=== PATIENT | male | born 1965 | race Caucasian/White ===

== ENCOUNTER → 2016-11-28 | Outpatient (REF) | payer OTHER ==
[~2016-11-28] MED LIST: GEMFIBROZIL; LISI10TA4; MAGN250T; SIMV10TA2; THERGRAN; ZOLO100T; fish oil; hctz
== END ==
LOC: M LAB REF 16:41
PROVIDERS: ATTEND Internal Medicine
DX: E78.5 Hyperlipidemia, unspecified (principal)

== ENCOUNTER 2017-03-31 20:04 | Emergency (ER) | payer OTHER ==
[~2017-03-31] VITALS: Ht 175.3 cm; Wt 99.0 kg
[2017-03-31] MEDS ORDERED: [UNRECOGNIZED DRUG - OTHER] PO (20:12)
[2017-03-31] MEDS ORDERED: PROP10TA56 PO (20:12)
[2017-03-31] MEDS ORDERED: TRAZ50TA11 PO (20:12)
[2017-03-31] MEDS ORDERED: CRES10TA32 PO (20:12)
[2017-03-31] MEDS ORDERED: FLAXPOW PO (20:12)
[2017-03-31] MEDS ORDERED: HYDR-3713 PO (21:23)
[2017-03-31] MEDS ORDERED: HYDROmorphone HCL 1 MG/ML SYRINGE (J1170) IM ONE (21:30)
[2017-03-31 21:58] VITALS: BP 152/92
== END 2017-03-31 22:02 | disposition home or self-care (01) ==
LOC: M ED 21:33
DX: M54.5 Low back pain (principal); G89.29 Other chronic pain
CPT/HCPCS: 96372; 99282; J1170

== ENCOUNTER → 2017-04-03 | Outpatient (REF) | payer OTHER ==
[~2017-04-03] MED LIST changes: +CRES10TA32 PO; +FLAXPOW PO; +HYDR-3713 PO; +PROP10TA56 PO; +TRAZ50TA11 PO; +[UNRECOGNIZED DRUG - OTHER] PO
== END ==
LOC: M LAB REF 13:02
PROVIDERS: ATTEND Internal Medicine
DX: E29.1 Testicular hypofunction (principal)

== ENCOUNTER 2017-05-14 18:56 | Emergency (ER) | payer OTHER ==
[~2017-05-14] VITALS: Ht 175.3 cm; Wt 99.5 kg
[2017-05-14 19:09] VITALS: BP 163/99
== END 2017-05-14 20:17 | disposition home or self-care (01) ==
LOC: M ED 18:56
DX: R07.0 Pain in throat (principal)

== ENCOUNTER → 2017-09-16 | Outpatient (REF) | payer OTHER | LOC: M LAB REF 13:28 | PROVIDERS: ATTEND Internal Medicine | DX: E29.1 Testicular hypofunction (principal) ==

== ENCOUNTER → 2017-10-10 | Outpatient (REF) | payer OTHER ==
[2017-10-10 12:16] LABS: TESTOSTERONE 123 NG/DL (241-827)
== END ==
LOC: M LAB REF 11:43
DX: E29.1 Testicular hypofunction (principal)

== ENCOUNTER → 2017-10-16 | Outpatient (REF) | payer OTHER ==
[2017-10-16 19:33] LABS: TOTAL PROTEIN,RANDOM URINE 208.6 MG/DL (0.0-12.0); URINE TOTAL PROTEIN 208.6 MG/DL (0-12)
[2017-10-16 19:41] LABS: COMPLEMENT C4 27.7 MG/DL (10-40); TOTAL PROTEIN 7.7 GM/DL (6.4-8.2)
[2017-10-16 19:41] LABS: COMPLEMENT C3 156 MG/DL (90-180)
[2017-10-17 17:20] LABS: HEPATITIS B SURFACE ANTIGEN NEGATIVE (NEGATIVE)
[2017-10-20 12:18] LABS: ALBUMIN % 53.6 % (55.8-66.1); ALPHA-1-GLOBULIN % 4.1 % (2.9-4.9); ALPHA-2-GLOBULINS % 11.6 % (7.1-11.8); BETA-1-GLOBULINS % 5.8 % (4.7-7.2)
[2017-10-20 12:19] LABS: ALBUMIN 4.13 GM/DL (3.29-5.55); ALPHA-1-GLOBULINS 0.32 GM/DL (0.17-0.41); ALPHA-2-GLOBULINS 0.89 GM/DL (0.42-0.99); BETA-1-GLOBULINS 0.45 GM/DL (0.28-0.60); BETA-2-GLOBULINS 1.42 GM/DL (0.19-0.55); BETA-2-GLOBULINS % 18.4 % (3.2-6.5); GAMMA GLOBULIN % 6.5 % (11.1-18.8)
[2017-10-20 12:33] LABS: IMMUNOTYPING SERUM IGG ABNORMAL (NORMAL)
[2017-10-20 12:34] LABS: IMMUNOTYPING SERUM LAMBDA ABNORMAL (NORMAL)
[2017-10-22 00:08] LABS: ANCA-ATYPICAL <1:20 titer (Neg:<1:20); ANTI DOUBLE STRAND-DNA AB <1 IU/mL (0-9); ANTI-GLOMERULAR BASEMENT MEMB 4 units (0-20); ANTINUCLEAR ANTIBODIES DIRECT Negative (Negative); CYTOPLASMIC NEUTROP AB ANCA-C <1:20 titer (Neg:<1:20); PERINUCLEAR AB ANCA-P <1:20 titer (Neg:<1:20)
== END ==
LOC: M LAB REF 18:09
DX: R80.9 Proteinuria, unspecified (principal); R31.29 Other microscopic hematuria

== ENCOUNTER → 2017-12-09 | Outpatient (REF) | payer OTHER ==
[2017-12-09 19:51] LABS: FERRITIN 76 NG/ML (26-388); IMMUNOGLOBULIN G 1460 MG/DL (681-1648); IMMUNOGLOBULIN M 59.7 MG/DL (40-230); IRON (FE) 51 UG/DL (65-175); PERCENT SATURATION 18.3 % (19.7-50.0); TOTAL IRON BINDING CAPACITY 278 UG/DL (250-450); TOTAL PROTEIN 7.4 GM/DL (6.4-8.2)
[2017-12-10 14:04] LABS: ALBUMIN 3.89 GM/DL (3.29-5.55); ALBUMIN % 52.5 % (55.8-66.1); ALPHA-1-GLOBULIN % 4.2 % (2.9-4.9); ALPHA-1-GLOBULINS 0.31 GM/DL (0.17-0.41); ALPHA-2-GLOBULINS 0.91 GM/DL (0.42-0.99); ALPHA-2-GLOBULINS % 12.3 % (7.1-11.8); BETA-1-GLOBULINS % 5.4 % (4.7-7.2); BETA-2-GLOBULINS 0.46 GM/DL (0.19-0.55); BETA-2-GLOBULINS % 6.2 % (3.2-6.5); GAMMA GLOBULIN % 19.4 % (11.1-18.8); GAMMA GLOBULINS 1.44 GM/DL (0.65-1.58)
[2017-12-10 14:06] LABS: IMMUNOTYPING SERUM IGG ABNORMAL (NORMAL); IMMUNOTYPING SERUM LAMBDA ABNORMAL (NORMAL)
[2017-12-12 00:07] LABS: FREE KAPPA LIGHT CHAINS SERUM 14.1 mg/L (3.3-19.4); FREE LAMBDA LIGHT CHAINS SERUM 17.5 mg/L (5.7-26.3); KAPPA/LAMBDA RATIO SERUM 0.81 (0.26-1.65)
== END ==
LOC: M LAB REF 17:36
DX: D47.2 Monoclonal gammopathy (principal); D64.9 Anemia, unspecified
CPT/HCPCS: 83550

== ENCOUNTER → 2017-12-10 | Outpatient (CLI) | payer OTHER | LOC: M LAB 12:18 | DX: D47.2 Monoclonal gammopathy (principal) | CPT/HCPCS: 77075 ==

== ENCOUNTER → 2017-12-11 | Outpatient (REF) | payer OTHER ==
[2017-12-11 07:53] LABS: TOTAL PROTEIN,RANDOM URINE 91.2 MG/DL (0.0-12.0); URINE TOTAL PROTEIN 91.2 MG/DL (0-12)
[2017-12-11 12:24] LABS: URINE VOLUME 3000 ML
[2017-12-11 12:25] LABS: UPEP INTERPRETATION M-SPIKE IN GAMMA
[2017-12-11 12:34] LABS: IMMUNOTYPE URINE IgG ABNORMAL (NORMAL); IMMUNOTYPE URINE LAMBDA ABNORMAL (NORMAL)
== END ==
LOC: M LAB 05:30
DX: C90.00 Multiple myeloma not having achieved remission (principal)

== ENCOUNTER → 2017-12-18 | Outpatient (REF) | payer OTHER | LOC: M LAB REF 12:49 | DX: D64.9 Anemia, unspecified (principal); D47.2 Monoclonal gammopathy ==

== ENCOUNTER → 2018-01-01 | Outpatient (REF) | payer OTHER ==
[2018-01-01 17:42] LABS: TOTAL PROTEIN,RANDOM URINE 121.6 MG/DL (0.0-12.0)
== END ==
LOC: M LAB REF 17:15
DX: E11.22 Type 2 diabetes mellitus with diabetic chronic kidney disease (principal); R80.9 Proteinuria, unspecified

== ENCOUNTER → 2018-01-08 | Outpatient (CLI) | payer OTHER | LOC: M RAD 07:20 | DX: N27.0 Small kidney, unilateral (principal) | CPT/HCPCS: 78707 ==

== ENCOUNTER → 2018-04-14 | Outpatient (REF) | payer OTHER ==
[2018-04-14 13:52] LABS: TESTOSTERONE 226 NG/DL (241-827)
== END ==
LOC: M LAB REF 13:29
DX: E29.1 Testicular hypofunction (principal)

== ENCOUNTER → 2018-05-04 | Outpatient (REF) | payer OTHER ==
[2018-05-04 13:58] LABS: TOTAL PROTEIN,RANDOM URINE 173.3 MG/DL (0.0-12.0)
== END ==
LOC: M LAB REF 13:15
DX: R80.9 Proteinuria, unspecified (principal)

== ENCOUNTER → 2018-05-28 | Outpatient (REF) | payer OTHER ==
[2018-05-28 14:24] LABS: TOTAL VOLUME, URINE 2990 ML
[2018-05-28 14:34] LABS: CREATININE 24 HOUR, URINE 1420.2 MG/24HR (950-2500); CREATININE, URINE 47.5 MG/DL; TOTAL PROTEIN 24 HOUR URINE 1991.3 MG/24HR (50-150); URINE TOTAL PROTEIN 66.6 MG/DL (0-12)
== END ==
LOC: M LAB REF 13:06
DX: R80.9 Proteinuria, unspecified (principal)

== ENCOUNTER → 2018-06-15 | Outpatient (REF) | payer OTHER ==
[2018-06-16 10:17] LABS: TESTOSTERONE FREE (DIRECT) 6.4 pg/mL (7.2-24.0)
== END ==
LOC: M LAB REF 12:04
DX: E29.1 Testicular hypofunction (principal)

== ENCOUNTER → 2018-06-18 | Outpatient (REF) | payer OTHER ==
[2018-06-18 12:17] LABS: TOTAL PROTEIN,RANDOM URINE 140.7 MG/DL (0.0-12.0); URINE TOTAL PROTEIN 140.7 MG/DL (0-12)
[2018-06-22 14:40] LABS: UPEP INTERPRETATION M-SPIKE IN BETA; URINE VOLUME 3000 ML
[2018-06-22 14:45] LABS: IMMUNOTYPE URINE IgG ABNORMAL (NORMAL); IMMUNOTYPE URINE LAMBDA ABNORMAL (NORMAL)
== END ==
LOC: M LAB REF 10:13
DX: R80.9 Proteinuria, unspecified (principal)
CPT/HCPCS: 84166

== ENCOUNTER → 2018-07-01 | Outpatient (REF) | payer OTHER ==
[2018-07-01 11:24] LABS: IMMUNOGLOBULIN G 1520 MG/DL (681-1648); IMMUNOGLOBULIN M 51 MG/DL (40-230); TOTAL PROTEIN 7.5 GM/DL (6.4-8.2)
[2018-07-02 11:28] LABS: ALBUMIN 3.96 GM/DL (3.29-5.55); ALBUMIN % 52.8 % (55.8-66.1); ALPHA-1-GLOBULIN % 3.9 % (2.9-4.9); ALPHA-1-GLOBULINS 0.29 GM/DL (0.17-0.41); BETA-1-GLOBULINS 0.41 GM/DL (0.28-0.60); BETA-1-GLOBULINS % 5.5 % (4.7-7.2); BETA-2-GLOBULINS 0.47 GM/DL (0.19-0.55); BETA-2-GLOBULINS % 6.2 % (3.2-6.5); GAMMA GLOBULIN % 19.6 % (11.1-18.8); GAMMA GLOBULINS 1.47 GM/DL (0.65-1.58)
[2018-07-03 00:06] LABS: FREE KAPPA LIGHT CHAINS SERUM 11.7 mg/L (3.3-19.4); KAPPA/LAMBDA RATIO SERUM 0.62 (0.26-1.65)
== END ==
LOC: M LAB REF 10:51
DX: D47.2 Monoclonal gammopathy (principal)
CPT/HCPCS: 84165

== ENCOUNTER → 2018-07-24 | Outpatient (REF) | payer OTHER ==
[2018-07-24 13:14] LABS: TESTOSTERONE 447 NG/DL (241-827)
== END ==
LOC: M LAB REF 12:23
DX: E29.1 Testicular hypofunction (principal)
CPT/HCPCS: 84403

== ENCOUNTER → 2018-07-31 | Outpatient (REF) | payer OTHER ==
[2018-07-31 17:24] LABS: INR 0.94; PROTHROMBIN TIME 12.7 SECONDS (12.1-14.4)
== END ==
LOC: M LAB REF 16:50
DX: Z01.812 Encounter for preprocedural laboratory examination (principal); E11.22 Type 2 diabetes mellitus with diabetic chronic kidney disease; R80.9 Proteinuria, unspecified
CPT/HCPCS: 85610

== ENCOUNTER → 2018-09-14 | Outpatient (CLI) | payer OTHER ==
[~2018-09-14] MED LIST changes: +LIDOCAINE 1% MDV 20ML VIAL As Ordered ONE; +LISI-672 PO; +MULTCAP PO; +SERT-138 PO; +SIMV20TA2 PO; +TRAZ-160 PO; -TRAZ50TA11 PO
--- NOTE | 2018-09-14 17:58 | REP ---
Renal ultrasound: Limited. History: Kidney biopsy. Findings: Real time sonographic guidance is provided Dr. Du who performed ultrasound-guided needle biopsy of the left kidney. Electronically Signed by Alireza Mccoy MD 09/15/2018 07:44 A
--- NOTE | 2018-09-15 10:16 | RO ---
DATE OF PROCEDURE: 09/14/2018 PREPROCEDURE DIAGNOSIS: Proteinuria. POSTPROCEDURE DIAGNOSIS: Proteinuria. PROCEDURE: Left kidney biopsy. INDICATIONS FOR PROCEDURE: Proteinuria. SURGEON: Fredrick Du MD CRYSTAL SLICER: None. ANESTHESIA: 1% lidocaine. DESCRIPTION OF PROCEDURE: Informed consent obtained from the patient for left kidney biopsy. The patient was brought to ultrasound room and he was placed in prone position on the table with a rolled towel under his abdomen. Left kidney was identified with ultrasound and after that the patient was cleaned and prepped in usual sterile fashion. 1% lidocaine was used for local anesthesia from the skin all the way down to kidney. Small skin incision made with the knife and trocar placed under ultrasound guidance. We attempted kidney biopsy; however, the kidney moved and needle did not merrill the kidney very well. After three attempts, we moved the rolled towel in forward position by 2 inches and then again trocar was placed and kidney biopsy was performed successfully. The patient tolerated the procedure well and there were no complications. Tissue was sent to pathology, and the patient was sent back to recovery room for observation. There was no significant blood loss.
== END ==
LOC: M RADPRO 10:45
PROVIDERS: ATTEND Internal Medicine Nephrology
DX: N26.9 Renal sclerosis, unspecified (principal); R80.9 Proteinuria, unspecified; N18.2 Chronic kidney disease, stage 2 (mild); G47.33 Obstructive sleep apnea (adult) (pediatric); E88.81 Metabolic syndrome and other insulin resistance; Z68.31 Body mass index [BMI] 31.0-31.9, adult; Z79.890 Hormone replacement therapy; Z79.899 Other long term (current) drug therapy; Z79.82 Long term (current) use of aspirin

== ENCOUNTER → 2018-09-17 | Outpatient (REF) | payer OTHER ==
[2018-09-17 12:57] LABS: TESTOSTERONE 723 NG/DL (241-827)
== END ==
LOC: M LAB REF 12:17
DX: E29.1 Testicular hypofunction (principal)
CPT/HCPCS: 84403

== ENCOUNTER 2019-02-10 20:08 | Emergency (ER) | payer OTHER ==
[~2019-02-10] VITALS: Ht 175.3 cm; Wt 96.0 kg
[~2019-02-10 20:08] MED LIST changes: +ALLE1TAB23 PO; +ASPI81TA26 PO; +CRES10TA PO; -CRES10TA32 PO; +EXCETAB80 PO; +FISH7.5C PO; +HYDR12.55 PO; -LIDOCAINE 1% MDV 20ML VIAL As Ordered ONE; +SYNT25TA PO; +VIAG100T PO; +VITA500T PO
[2019-02-10 20:39] LABS: BASO % 0.4 % (0.0-1.0); EOS # 0.1 10^3/uL (0.0-0.50); HEMATOCRIT 35.5 % (42.0-52.0); HEMOGLOBIN 11.9 g/dl (13.5-17.5); LYMPH # 1.7 10^3/uL (1.5-4.5); LYMPH % 24.4 % (24.0-44.0); MEAN CORPUSCULAR HEMOGLOBIN 28.7 pg (27.0-33.0); MEAN CORPUSCULAR HGB CONC 33.5 g/dl (32.0-36.5); MEAN CORPUSCULAR VOLUME 85.7 fl (80.0-96.0); MONO # 0.6 10^3/uL (0.0-0.8); MONO % 8.9 % (0.0-5.0); NEUTROPHILS # 4.5 10^3/uL (1.8-7.7); PLATELET COUNT, AUTOMATED 226 10^3/uL (150-450); RED BLOOD COUNT 4.14 10^6/uL (4.30-6.10); WHITE BLOOD COUNT 7.1 10^3/uL (4.0-10.0)
--- NOTE | 2019-02-10 20:41 | ECGEPIP ---
Stationary ECG Study [facility] - ED Test Date: 2019-02-10 Pat Name: MARGARET CARTAGENA Department: Room: - Gender: M Armament Repairer: : 1965 Requested By: Martinez Alves Order Number: [id number] Reading MD: Leonila Perla Measurements Intervals [place] Rate: 67 P: 31 VT: 179 QRS: 4 QRSD: 93 T: 51 QT: 351 QTc: 372 Interpretive Statements SINUS RHYTHM NONSPECIFIC T-WAVE ABNORMALITY SIMILAR 12/28/11 Electronically Signed On 02-10-2019 20:41:30 EDT by Leonila Perla
[2019-02-10] MEDS ORDERED: ACETAMINOPHEN TAB 650MG DOSE (2X325MG) PO ONE (20:45)
[2019-02-10] MEDS ORDERED: amLODIPine 10 MG TAB PO ONE (20:45)
[2019-02-10 20:53] LABS: INR 1.06; PROTHROMBIN TIME 13.9 SECONDS (12.1-14.4)
[2019-02-10 21:01] LABS: ALBUMIN 3.6 GM/DL (3.2-5.2); ALT/SGPT 22 U/L (12-78); BILIRUBIN,TOTAL 0.4 MG/DL (0.2-1.0); BLOOD UREA NITROGEN 22 MG/DL (7-18); CALCIUM LEVEL 9.3 MG/DL (8.5-10.1); CARBON DIOXIDE LEVEL 27 MEQ/L (21-32); CHLORIDE LEVEL 105 MEQ/L (98-107); CPK CREATINE PHOSPHOKINASE 316 U/L (39-308); CREATININE FOR GFR 1.51 MG/DL (0.70-1.30); GLOMERULAR FILTRATION RATE 51.5 (>56); GLUCOSE, FASTING 129 MG/DL (70-100); LIPASE 534 U/L (73-393); MB/CK RELATIVE INDEX 0.41 (< OR =4); POTASSIUM SERUM 3.7 MEQ/L (3.5-5.1); SODIUM LEVEL 138 MEQ/L (136-145); TOTAL PROTEIN 7.6 GM/DL (6.4-8.2); TROPONIN I < 0.02 NG/ML (< 0.10)
[2019-02-10] MEDS ORDERED: AMLO10TA PO (21:22)
[2019-02-10 22:42] VITALS: BP 132/84
--- NOTE | 2019-02-11 01:51 | REP ---
Clinical: Neck pain . Technique: AP, lateral, and open-mouth views of the cervical spine. Findings: Alignment and lordosis is maintained. There is no evidence for acute fracture / compression injury or subluxation. Open mouth view demonstrates normal C1-C2 articulation and odontoid process. Focal advanced degenerative disc osteophyte complex at the C5-6 and C6-7 with bulky anterior osteophytes, endplate sclerosis and disc space narrowing noted. Impression: 1. Focal advanced degenerative changes at C5-6 and C6-7. Remainder examination demonstrates mild multilevel age-related changes. Electronically Signed by Kasi Barnett MD 02/11/2019 01:43 A
== END 2019-02-10 22:49 | disposition home or self-care (01) ==
LOC: M ED 20:08
DX: M54.2 Cervicalgia (principal); I10 Essential (primary) hypertension; Z79.899 Other long term (current) drug therapy; Z79.890 Hormone replacement therapy; Z79.82 Long term (current) use of aspirin; Z88.7 Allergy status to serum and vaccine

== ENCOUNTER 2019-05-10 08:29 | Day surgery (SDC) | payer OTHER ==
[~2019-05-10] VITALS: Ht 175.3 cm; Wt 92.1 kg
[~2019-05-10 08:29] MED LIST changes: +ACYC400T PO; +AMLO10TA PO; +LIDOCAINE 2% INJ 100 MG/5 ML SDV (FOR ANES.) As Ordered ONE; +PROPOFOL 200 MG/20 ML VIAL As Ordered ONE; +PROTPAK PO; +REVL25CA PO; +TEST5GEL TOP; -TRAZ-160 PO; +TRAZ-252 PO; +VELC3.5I IM; +ZOFR4TAB16 PO; +[UNRECOGNIZED DRUG - OTHER] PO; +fentaNYL 100 MCG/2 ML INJECTION (J3010) As Ordered ONE
[2019-05-10] MEDS ORDERED: NS 1,000 ML IV ONE (08:30)
[2019-05-10] MEDS ORDERED: PROPOFOL 200 MG/20 ML VIAL As Ordered ONE (11:19)
--- NOTE | 2019-05-10 11:40 | ROOR ---
Patient Name: Frank Owens Procedure Date: 05/10/2019 10:49 AM Date of : 1965 Age: 53 Room: [facility] Gender: Male Note Status: Finalized Procedure: Colonoscopy Indications: Iron deficiency anemia Providers: Jeovany Rabago MD Referring MD: VIOLETA DAWSON JR, MD Requesting Provider: Medicines: Monitored Anesthesia Care Complications: No immediate complications. Procedure: Pre-Anesthesia Assessment: - Prior to the procedure, a History and Physical was performed, and patient medications and allergies were reviewed. The patient is competent. The risks and benefits of the procedure and the sedation options and risks were discussed with the patient. All questions were answered and informed consent was obtained. Patient identification and proposed procedure were verified by the physician, the nurse and the anesthesiologist in the procedure room. Mental Status Examination: normal. Airway Examination: normal oropharyngeal airway and neck mobility. Respiratory Examination: clear to auscultation. CV Examination: normal. Prophylactic Antibiotics: The patient does not require prophylactic antibiotics. Prior Anticoagulants: The patient has taken no previous anticoagulant or antiplatelet agents. ASA Grade Assessment: II - A patient with mild systemic disease. After reviewing the risks and benefits, the patient was deemed in satisfactory condition to undergo the procedure. The anesthesia plan was to use monitored anesthesia care (MAC). Immediately prior to administration of medications, the patient was re-assessed for adequacy to receive sedatives. The heart rate, respiratory rate, oxygen saturations, blood pressure, adequacy of pulmonary ventilation, and response to care were monitored throughout the procedure. The physical status of the patient was re-assessed after the procedure. The Colonoscope was introduced through the anus and advanced to the terminal ileum, with identification of the appendiceal orifice and IC valve. The colonoscopy was performed without difficulty. The patient tolerated the procedure well. The quality of the bowel preparation was good. The terminal ileum, ileocecal valve, appendiceal orifice, and rectum were photographed. Scope insertion time was 3 minutes. Scope withdrawal time was 9 minutes. The total duration of the procedure was 12 minutes. Findings: The perianal and digital rectal examinations were normal. The terminal ileum appeared normal. A 5 mm polyp was found in the ascending colon. The polyp was sessile. The polyp was removed with a cold snare. Resection and retrieval were complete. Verification of patient identification for the specimen was done by the physician and nurse using the patient's name, date and medical record number. Non-bleeding external and internal hemorrhoids were found during retroflexion. The hemorrhoids were medium-sized. No other significant abnormalities were identified in a careful examination of the remainder of the colon. Impression: - The examined portion of the ileum was normal. - One 5 mm polyp in the ascending colon, removed with a cold snare. Resected and retrieved. - Non-bleeding external and internal hemorrhoids. Recommendation: - Patient has a contact number available for emergencies. The signs and symptoms of potential delayed complications were discussed with the patient. Return to normal activities tomorrow. Written discharge instructions were provided to the patient. - High fiber diet. - Continue present medications. - Await pathology results. - Repeat colonoscopy in 5-10 years for surveillance based on pathology results. - Return to GI clinic in [facility] (address [address], [address], [place], [facility] [place] in 4 -- 6 weeks. Please call GI clinic @ [phone] for apppointment date and time. - Return to primary care physician. Jeovany Rabago MD Jeovany Rabago MD 05/10/2019 11:40:11 AM Electronically signed by Jeovany Rabago MD Number of Addenda: 0 Note Initiated On: 05/10/2019 10:49 AM Estimated Blood Loss: Estimated blood loss was minimal.
--- NOTE | 2019-05-10 11:41 | ROOR ---
Patient Name: Frank Owens Procedure Date: 05/10/2019 10:48 AM Date of : 1965 Age: 53 Room: [facility] Gender: Male Note Status: Finalized Procedure: Upper GI endoscopy Indications: Iron deficiency anemia Providers: Jeovany Rabago MD Referring MD: VIOLETA DAWSON JR, MD Requesting Provider: Medicines: Monitored Anesthesia Care Complications: No immediate complications. Procedure: Pre-Anesthesia Assessment: - Prior to the procedure, a History and Physical was performed, and patient medications and allergies were reviewed. The patient is competent. The risks and benefits of the procedure and the sedation options and risks were discussed with the patient. All questions were answered and informed consent was obtained. Patient identification and proposed procedure were verified by the physician, the nurse and the anesthesiologist in the procedure room. Mental Status Examination: alert and oriented. Airway Examination: normal oropharyngeal airway and neck mobility. Respiratory Examination: clear to auscultation. CV Examination: normal. Prophylactic Antibiotics: The patient does not require prophylactic antibiotics. Prior Anticoagulants: The patient has taken no previous anticoagulant or antiplatelet agents. ASA Grade Assessment: II - A patient with mild systemic disease. After reviewing the risks and benefits, the patient was deemed in satisfactory condition to undergo the procedure. The anesthesia plan was to use monitored anesthesia care (MAC). Immediately prior to administration of medications, the patient was re-assessed for adequacy to receive sedatives. The heart rate, respiratory rate, oxygen saturations, blood pressure, adequacy of pulmonary ventilation, and response to care were monitored throughout the procedure. The physical status of the patient was re-assessed after the procedure. The Endoscope was introduced through the mouth, and advanced to the second part of duodenum. The upper GI endoscopy was accomplished without difficulty. The patient tolerated the procedure well. Findings: The examined esophagus was normal. The examined esophagus was normal. Scattered mild inflammation characterized by congestion (edema), erythema and granularity was found in the gastric antrum. Biopsies were taken with a cold forceps for Helicobacter pylori testing. Verification of patient identification for the specimen was done by the physician and nurse using the patient's name, date and medical record number. The duodenal bulb and second portion of the duodenum were normal. Biopsies for histology were taken with a cold forceps for evaluation of celiac disease. Impression: - Normal esophagus. - Normal esophagus. - Gastritis. Biopsied. - Normal duodenal bulb and second portion of the duodenum. Biopsied. Recommendation: - Patient has a contact number available for emergencies. The signs and symptoms of potential delayed complications were discussed with the patient. Return to normal activities tomorrow. Written discharge instructions were provided to the patient. - Resume previous diet. - Continue present medications. - Await pathology results. - Return to GI clinic in [facility] (address [address] [place] [address] [address] [place] [address]) in 4 -- 6 weeks. Please call GI clinic @ [phone] for apppointment date and time. - Return to primary care physician. Jeovany Rabago MD Jeovany Rabago MD 05/10/2019 11:41:14 AM Electronically signed by Jeovany Rabago MD Number of Addenda: 0 Note Initiated On: 05/10/2019 10:48 AM Estimated Blood Loss: Estimated blood loss was minimal.
[2019-05-10 11:45] VITALS: BP 149/79
== END 2019-05-10 11:58 | disposition home or self-care (01) ==
LOC: M OPP 08:29
PROVIDERS: ATTEND Internal Medicine Gastroenterology
DX: D12.2 Benign neoplasm of ascending colon (principal); K29.70 Gastritis, unspecified, without bleeding; K64.8 Other hemorrhoids; D50.9 Iron deficiency anemia, unspecified
CPT/HCPCS: 43239; 45385; 88305; J3010

== ENCOUNTER → 2019-08-03 | Outpatient (REF) | payer OTHER ==
[~2019-08-03] MED LIST changes: -LIDOCAINE 2% INJ 100 MG/5 ML SDV (FOR ANES.) As Ordered ONE; -PROPOFOL 200 MG/20 ML VIAL As Ordered ONE; -fentaNYL 100 MCG/2 ML INJECTION (J3010) As Ordered ONE
[2019-08-03 18:19] LABS: PERCENT SATURATION 20.6 % (19.7-50.0)
== END ==
LOC: M LAB REF 17:08
PROVIDERS: ATTEND Internal Medicine Nephrology
DX: D64.9 Anemia, unspecified (principal)

== ENCOUNTER → 2020-02-08 | Outpatient (REF) | payer OTHER ==
[~2020-02-08] MED LIST changes: -LISI-672 PO; +LISI30TA4 PO; +OCUVTAB4 PO; -SIMV20TA2 PO; +SIMV20TA22 PO; +VITA-243 PO; -VITA500T PO
[2020-02-08 13:09] LABS: IMMUNOGLOBULIN M 51.5 MG/DL (40-230)
[2020-02-10 00:07] LABS: FREE KAPPA LIGHT CHAINS SERUM 14.8 mg/L (3.3-19.4); FREE LAMBDA LIGHT CHAINS SERUM 15.9 mg/L (5.7-26.3); KAPPA/LAMBDA RATIO SERUM 0.93 (0.26-1.65)
== END ==
LOC: M LAB REF 12:22
PROVIDERS: ATTEND Internal Medicine
DX: D47.2 Monoclonal gammopathy (principal)

== ENCOUNTER → 2020-08-15 | Outpatient (REF) | payer OTHER | LOC: M LAB REF 12:33 | PROVIDERS: ATTEND Internal Medicine | DX: E29.1 Testicular hypofunction (principal) ==

== ENCOUNTER → 2020-09-08 | Outpatient (CLI) | payer SELFPAY | LOC: M LABSMTC 12:25 | PROVIDERS: ATTEND Pediatrics | DX: Z20.828 Contact with and (suspected) exposure to other viral communicable diseases (principal) ==

== ENCOUNTER → 2020-10-19 | Outpatient (REF) | payer OTHER | LOC: M LAB REF 12:19 | PROVIDERS: ATTEND Internal Medicine | DX: E29.1 Testicular hypofunction (principal) ==

== ENCOUNTER → 2021-02-23 | Outpatient (REF) | payer OTHER ==
[~2021-02-23] MED LIST changes: +ACYC1TAB PO; -ACYC400T PO; +MULT-90 PO; +SERT50TA29 PO
== END ==
LOC: M LAB REF 12:01
PROVIDERS: ATTEND Internal Medicine
DX: E29.1 Testicular hypofunction (principal)

== ENCOUNTER → 2021-03-28 | Outpatient (REF) | payer OTHER | LOC: M LAB REF 12:52 | PROVIDERS: ATTEND Internal Medicine | DX: E29.1 Testicular hypofunction (principal) ==

== ENCOUNTER → 2021-05-23 | Outpatient (REF) | payer OTHER | LOC: M LAB REF 11:10 | PROVIDERS: ATTEND Internal Medicine | DX: E29.1 Testicular hypofunction (principal) ==

== ENCOUNTER → 2021-08-15 | Outpatient (REF) | payer OTHER ==
[~2021-08-15] MED LIST changes: +[UNRECOGNIZED DRUG - CODE] PO
== END ==
LOC: M LAB REF 16:46
PROVIDERS: ATTEND Internal Medicine Nephrology
DX: E83.42 Hypomagnesemia (principal)

== ENCOUNTER → 2021-08-28 | Outpatient (REF) | payer OTHER | LOC: M LAB REF 12:25 | PROVIDERS: ATTEND Internal Medicine | DX: E29.1 Testicular hypofunction (principal); E78.2 Mixed hyperlipidemia ==

== ENCOUNTER → 2021-08-28 | Outpatient (CLI) | payer OTHER ==
--- NOTE | 2021-08-28 16:38 | REP ---
INDICATION: PAIN COMPARISON: None. TECHNIQUE: Two views of the left clavicle FINDINGS: Clavicle appears intact. Sternoclavicular and acromioclavicular joints are relatively normal. Surrounding soft tissues are unremarkable. IMPRESSION: Relatively normal appearance of the clavicle and associated joint spaces. <Electronically signed by Kasi Barnett > 08/28/21 0561
== END ==
LOC: M WUC 15:55
PROVIDERS: ATTEND Internal Medicine
DX: M25.512 Pain in left shoulder (principal)

== ENCOUNTER → 2022-03-05 | Outpatient (REF) | payer OTHER ==
[2022-03-07 19:07] LABS: LDL DIRECT 53 mg/dL (0-99); TESTOSTERONE FREE (DIRECT) 6.6 pg/mL (7.2-24.0)
== END ==
LOC: M LAB REF 11:59
PROVIDERS: ATTEND Internal Medicine
DX: E78.2 Mixed hyperlipidemia (principal); E29.1 Testicular hypofunction